=== PATIENT | male | born 1940 | race Caucasian/White ===

== ENCOUNTER 2021-01-02 12:10 | Emergency (ER) | payer MEDICARE, OTHER ==
--- NOTE | 2021-01-02 13:06 | ED Physician Documentation ---
PD HPI LOWER EXT INJURY - Stated complaint Stated Complaint: LT LEG SWELLING - Chief complaint Chief Complaint: Ext Problem - History obtained from History obtained from: Patient - History of Present Illness PD HPI LOW EXT INJURY LOCATION: Left, Lower leg Pain level max: 0 Pain level now: 0 - Additional information Additional information: 80 year old male with a "lump to the L blount" and bruising down his L leg. Noticed it today. Does not recall any injury. Nothing makes it better or worse. Is not on blood thinners. States noticed it today when he got out of the shower. Review of Systems Constitutional: denies: Fever GI: denies: Vomiting Skin: denies: Rash PD PAST MEDICAL HISTORY - Past Medical History Past Medical History: Yes HEENT: Macular degeneration Other Past Medical History: AVM - Past Surgical History Past Surgical History: Yes Ortho: Arthroscopic surgery - Present Medications Home Medications: Ambulatory Orders Medication Instructions Recorded Confirmed Lisinopril [Zestril] 20 mg PO DAILY 01/02/21 01/02/21 Rosuvastatin Calcium [Crestor] 20 mg PO DAILY 01/02/21 01/02/21 Tamsulosin [Flomax] 0.4 mg PO DAILY 01/02/21 01/02/21 - Allergies Allergies/Adverse Reactions: Allergies Allergy/AdvReac Type Severity Reaction Status Date / Time No Known Drug Allergies Allergy Verified 01/02/21 12:18 - Social History Does the pt smoke?: No Smoking Status: Never smoker Does the pt drink ETOH?: Yes ETOH Use: Wine, Beer Does the pt have substance abuse?: No - Immunizations Immunizations are current?: Yes - POLST Patient has POLST: No PD ED PE NORMAL - Vitals Vital signs reviewed: Yes - General General: Alert and oriented X 3, No acute distress - HEENT HEENT: Moist mucous membranes - Neck Neck: Supple, no meningeal sign - Cardiac Cardiac: RRR - Respiratory Respiratory: No respiratory distress, Clear bilaterally - Derm Derm: Warm and dry - Extremities Extremities: Other (no tenderness over the tibia or fibula. NVI. 2x2 cm soft mass on the medial aspect, upper leg. Ecchymosis down the leg. ) - Neuro Neuro: Alert and oriented X 3 Results - Vitals Vitals: Vital Signs - 24 hr 01/02/21 01/02/21 12:18 13:14 Temperature 36.7 C 36.8 C Heart Rate 101 H 67 Respiratory 18 18 Rate Blood Pressure 178/93 H 134/70 H O2 Saturation 96 97 Oxygen O2 Source Room air PD MEDICAL DECISION MAKING - ED course Complexity details: considered differential, d/w patient ED course: Bedside ultrasound reveals a hematoma to the left anterior blount. This is consistent with his physical exam. Can utilize compression, ice to help this heal. No indication of DVT or blood clot, abscess, tumor. Patient counseled regarding signs and symptoms for which I believe and urgent re-evaluation would be necessary. Patient with good understanding of and agreement to plan and is comfortable going home at this time This document was made in part using voice recognition software. While efforts are made to proofread this document, sound alike and grammatical errors may occur. Departure - Departure Disposition: 01 Home, Self Care Clinical Impression: Hematoma Condition: Good Instructions: ED Hematoma Follow-Up: your,doctor in 1 week for recheck [Other] Comments: You can use ice and compression to help this heal. In a few days, you can change to heat. Return if you worsen. Your leg will continue to bruise for the next few days. Discharge Date/Time: 01/02/21 13:28
[2021-01-02 13:19] VITALS: BP 134/70
== END 2021-01-02 13:28 | disposition home or self-care (01) ==
LOC: ED 12:10
DX: S80.12XA Contusion of left lower leg, initial encounter (principal); X58.XXXA Exposure to other specified factors, initial encounter
CPT/HCPCS: 99281; 99282

== ENCOUNTER 2023-11-11 06:58 | Emergency (ER) | payer MEDICARE, OTHER ==
[2023-11-11 07:17] VITALS: O2SAT 97
--- NOTE | 2023-11-11 07:56 | ED Physician Documentation ---
History of Present Illness - Stated complaint Stated Complaint: GLF/WEAKNESS - Chief complaint Chief Complaint: General - History obtained from History obtained from: Patient - Additonal information Additional information: Patient is an 82-year-old male presenting for evaluation of an episode of generalized weakness causing him to fall this morning. Patient states he was up at 5:00 this morning and suddenly felt like his legs had no power in them and fell down to the ground. Patient states he was just getting up out of bed to go to the bathroom when this occurred. He denies hitting his head or having LOC. He denies dizziness or lightheadedness. He did sustain an abrasion to his right elbow and right shoulder blade area. He states that initially he was not able to get himself back up as his arms also felt weak. He did state he checked to see if 1 side was more weak than the other or if he was having any trouble with smiling and did not note this. After a few minutes he was able to get himself back up and states he was unable to go up and down the stairs several times at home and also drive himself here and walk in without any difficulty. He again denies a headache, dizziness, chest pain, shortness of air, recent illness. He does have a history of neuropathy but states he has never fallen from this. Review of Systems Constitutional: denies: Fever Cardiac: denies: Chest pain / pressure Respiratory: denies: Dyspnea GI: denies: Abdominal Pain Neurologic: reports: Generalized weakness. denies: Headache PD PAST MEDICAL HISTORY - Past Medical History Past Medical History: Yes HEENT: Macular degeneration - Past Surgical History Past Surgical History: Yes Ortho: Arthroscopic surgery - Present Medications Home Medications: Ambulatory Orders Medication Instructions Recorded Confirmed Lisinopril [Zestril] 20 mg PO DAILY 01/02/21 11/11/23 Rosuvastatin Calcium [Crestor] 20 mg PO DAILY 01/02/21 11/11/23 Tamsulosin [Flomax] 0.4 mg PO DAILY 01/02/21 11/11/23 hydroCHLOROthiazide [Hydrodiuril] 25 mg PO DAILY 11/11/23 11/11/23 - Allergies Allergies/Adverse Reactions: Allergies Allergy/AdvReac Type Severity Reaction Status Date / Time No Known Drug Allergies Allergy Verified 11/11/23 07:13 - Social History Does the pt smoke?: No Smoking Status: Never smoker Does the pt drink ETOH?: Yes Does the pt have substance abuse?: No - Immunizations Immunizations are current?: Yes - POLST Patient has POLST: No PD ED PE NORMAL - General General: Alert and oriented X 3, No acute distress, Well developed/nourished - HEENT HEENT: Atraumatic, Moist mucous membranes, Pharynx benign - Neck Neck: Supple, no meningeal sign - Cardiac Cardiac: RRR, Strong equal pulses - Respiratory Respiratory: No respiratory distress, Clear bilaterally - Abdomen Abdomen: Normal bowel sounds, Soft, Non tender, Non distended - Back Back: No spinal TTP - Derm Derm: Warm and dry - Extremities Extremities: Other (Superficial abrasion to R shoulder & R elbow with normal ROM at R shoulder and R elbow) - Neuro Neuro: Alert and oriented X 3, attorney at law 2-12 intact, No motor deficit, No sensory deficit, Normal speech Eye Opening: Spontaneous Motor: Obeys Commands Verbal: Oriented GCS Score: 15 Results - Vitals Vitals: Vital Signs - 24 hr 11/11/23 11/11/23 11/11/23 07:09 08:29 08:59 Temperature 36.5 C Heart Rate 86 67 Heart Rate [ 91 Sitting] Heart Rate [ 93 Standing] Heart Rate [ 95 Supine] Respiratory 20 22 Rate Blood Pressure 152/74 H 122/71 Blood Pressure 136/72 H [Sitting] Blood Pressure 136/76 H [Standing] Blood Pressure 136/76 H [Supine] O2 Saturation 97 97 Oxygen O2 Source Room air - EKG (time done) 0708 EKG releavant findings:: EKG personally interpreted by author of this note. Relevant findings are: Rate 87, normal sinus rhythm, right bundle branch block, no STEMI - Labs Labs: Laboratory Tests 11/11/23 11/11/23 07:54 07:54 WBC 10.3 RBC 4.77 Hgb 14.8 Hct 45.0 MCV 94.3 H MCH 31.0 MCHC 32.9 RDW 14.0 Plt Count 198 MPV 9.5 Neut # (Auto) 8.2 H Lymph # (Auto) 1.2 L Wilcox # (Auto) 0.8 Eos # (Auto) 0.1 Baso # (Auto) 0.1 Absolute Nucleated RBC 0.00 Nucleated RBC % 0.0 Sodium 139 Potassium 3.9 Chloride 102 Carbon Dioxide 31 Anion Gap 6.0 BUN 20 Creatinine 1.0 Estimated GFR (MDRD) 72 L Glucose 100 Calcium 9.4 Total Bilirubin 1.6 H AST 44 H ALT 25 Alkaline Phosphatase 47 Total Protein 6.7 Albumin 4.3 Globulin 2.4 Albumin/Globulin Ratio 1.8 Lipase 27 PD Medical Decision Making - ED course Complexity details: reviewed results, re-evaluated patient, d/w patient, d/w family ED course: Patient presenting for evaluation of an episode of weakness this morning as he was getting up from his bed and walking to the bathroom. No head injury. Normal neuroexam here. He initially had trouble getting up off the ground but then was able to and has since been ambulatory this morning including going up and down stairs without any difficulty. There were no associated symptoms to suggest a stroke or heart attack. EKG demonstrates a sinus rhythm. CBC and chemistries were obtained and reviewed and without significant findings. Patient has remained asymptomatic here with negative orthostatics. Patient counseled on need for close follow-up as well as concerning symptoms to return for. Departure - Departure Disposition: 01 Home, Self Care Clinical Impression: Generalized weakness, Fall at home, Abrasion Condition: Stable Instructions: ED Abrasion, ED Weakness [facility] Comments: The exact cause for your weakness and fall this morning is unclear. But it is reassuring that your symptoms resolved quickly and have not reoccurred. You also did not have symptoms to suggest a stroke or a heart attack. You were given a tetanus booster today because of the abrasions you have. Please keep your wounds clean and dry. You can use bacitracin on the wounds but I would not recommend Neosporin as this can be irritating. I would recommend you take caution when you first get up in the morning and make sure you sit on the edge of the bed for a few minutes before fully standing up and ambulating. I would also recommend close follow-up with your primary care provider. Please return to the emergency department with any recurrent episodes or if you develop any new symptoms. Forms: PCP List Discharge Date/Time: 11/11/23 09:05
[2023-11-11] MEDS ORDERED: TETANUS/DIPHTHERIA/PERTUSSIS 0.5 ML SYRINGE IM ONE (07:58)
[2023-11-11] MEDS ORDERED: BACITRACIN ZINC OINT 1 PACKET TOP STA (07:59)
[2023-11-11 08:04] LABS: BASOPHILS # (AUTO) 0.1 10^3/uL (0.0-0.1); BASOPHILS % (AUTO) 0.5 %; EOSINOPHILS # (AUTO) 0.1 10^3/uL (0.0-0.7); EOSINOPHILS % (AUTO) 0.6 %; HGB - HEMOGLOBIN 14.8 g/dL (14.0-18.0); LYMPHOCYTES # (AUTO) 1.2 10^3/uL (1.5-3.5); LYMPHOCYTES % (AUTO) 11.2 %; MEAN CORPUSCULAR HGB CONC 32.9 g/dL (32.0-36.0); MEAN CORPUSCULAR VOLUME 94.3 fL (80.0-94.0); MEAN PLATELET VOLUME 9.5 fL (7.4-11.4); MONOCYTES # (AUTO) 0.8 10^3/uL (0.0-1.0); MONOCYTES % (AUTO) 7.5 %; NEUTROPHILS # (AUTO) 8.2 10^3/uL (1.5-6.6); NEUTROPHILS % (AUTO) 79.8 %; PLT - PLATELET COUNT 198 10^3/uL (130-450); RED BLOOD COUNT 4.77 10^6/uL (4.70-6.10); WHITE BLOOD COUNT 10.3 x10^3/uL (4.8-10.8)
[2023-11-11 08:17] LABS: ALBUMIN 4.3 g/dL (3.2-5.5); ALBUMIN/GLOBULIN RATIO 1.8 (1.0-2.2); BILIRUBIN,TOTAL 1.6 mg/dL (0.2-1.0); CALCIUM 9.4 mg/dL (8.5-10.3); POTASSIUM 3.9 mmol/L (3.5-4.5); TOTAL PROTEIN 6.7 g/dL (6.4-8.9)
[2023-11-11 09:08] VITALS: BP 122/71
== END 2023-11-11 09:05 | disposition home or self-care (01) ==
LOC: ED 06:58
DX: S50.311A Abrasion of right elbow, initial encounter (principal); S40.211A Abrasion of right shoulder, initial encounter; R53.1 Weakness; W18.30XA Fall on same level, unspecified, initial encounter; Z79.899 Other long term (current) drug therapy; Z23 Encounter for immunization
CPT/HCPCS: 36415; 80053; 83690; 85025; 90471; 90715; 93005; 99283; 99284; A9270